=== PATIENT | female | born 1975 | race Caucasian/White ===

== ENCOUNTER 2022-04-22 05:42 | Day surgery (SDC) | payer MEDICARE ==
[~2022-04-22] VITALS: Ht 152.4 cm; Wt 127.0 kg
[2022-04-22] MEDS ORDERED: TRESIBA FL100 UNIT/1 SQ (06:03)
[2022-04-22] MEDS ORDERED: NOVOLOG FLEX100 U/ML SQ (06:03)
[2022-04-22] MEDS ORDERED: PRINIVIL10 MG PO (06:04)
[2022-04-22 06:21] VITALS: BP 121/64; PULSE 80; TEMP 97.5
[2022-04-22 07:45] VITALS: BP 123/64; PULSE 77; TEMP 97
--- NOTE | 2022-04-22 07:56 | NUR ---
0745 - PT arrives and assisted w/ ambulating from cart to chair 2:1; monitors applied and vitals obtained. PT denies pain/nausea; snack and drink provided. Verbal report obtained from Apurva ALVARES. Non-slip socks are on and call beckwith within reach. PT requested RN contact for ride home.
[2022-04-22 08:00] VITALS: BP 115/65; PULSE 75
--- NOTE | 2022-04-22 08:07 | NUR ---
0800 - VSS. PT has finished snack and drink. PT expressed desire to be discharged. Call beckwith remains within reach.
[2022-04-22 08:15] VITALS: BP 103/61; PULSE 77
--- NOTE | 2022-04-22 08:22 | NUR ---
0815 - VSS. IV discontinued; catheter tip intact and pressure bandage applied. NO redness or swelling noted. DC instructions and educational material reviewed w/ PT who verbalized understanding and signed the related paperwork. Questions answered to PT satisfaction. PT refused RN assistance changing into personal clothes, call beckwith remains within reach if needed. has spoken w/ PT.
--- NOTE | 2022-04-22 08:31 | NUR ---
0830 - PT was dismissed from endo via wheelchair to PT entrence by Carolann ALVARES; PT has DC packet and personal belongings and was transferred into the care of her , who is present to drive private car.
== END 2022-04-22 08:30 | disposition home or self-care (01) ==
LOC: SDCO 05:42
DX: Z12.11 Encounter for screening for malignant neoplasm of colon (principal); K62.1 Rectal polyp; K63.5 Polyp of colon; Z98.0 Intestinal bypass and anastomosis status; Z85.038 Personal history of other malignant neoplasm of large intestine
CPT/HCPCS: J2704; J7030